=== PATIENT | male | born 1955 ===

== ENCOUNTER 2022-02-19 12:27 | Inpatient (IN) | payer MEDICARE ==
[~2022-02-19] VITALS: Ht 193 cm; Wt 71.0 kg
[~2022-02-19 12:27] MED LIST: CEPH500 PO
[2022-02-19] MEDS ORDERED: Calcium Acetat667 MG PO (12:49)
[2022-02-19] MEDS ORDERED: FURO40 PO (12:49)
[2022-02-19] MEDS ORDERED: FINA5 PO (12:49)
[2022-02-19] MEDS ORDERED: FAMO20 PO (12:50)
[2022-02-19] MEDS ORDERED: METO25 PO (12:50)
[2022-02-19] MEDS ORDERED: OXYC5 PO (12:50)
[2022-02-19] MEDS ORDERED: SERT25 PO (12:51)
[2022-02-19] MEDS ORDERED: BUPR150ER PO (20:23)
[2022-02-19] MEDS ORDERED: MIRTAZAPINE7.5 M1 PO (20:27)
--- NOTE | 2022-02-19 21:43 | NUR ---
PHYSICIAN COMMUNICATION CONTACTED DR WALSH TO NOTIFY HIM THE PATIENT WAS EXPERIENCING 7/10 PAIN. REPORTED THAT THE PATIENT TYPICALLY TAKES 5 MG OXYCODONE AT HOME BID. DR WALSH SAID TO GIVE HIM ONE DOSE NOW AND ONE IN FOUR HOURS IF NEEDED.
--- NOTE | 2022-02-20 05:52 | NUR ---
SHIFT SUMMARY PATIENT ALERT AND ORIENTED X4. MEDICATED TWICE PER EMAR FOR PAIN TO HIS SURGICAL SITE. DRESSING IS INTACT WITH A SMALL AMOUNT OF SANGUENOUS DRAINAGE NOTED. NO ACUTE ISSUES NOTED OVERNIGHT. CALL LIGHT WITHIN REACH. REPORT GIVEN TO ONCOMING RN.
== END 2022-02-20 07:54 | disposition home or self-care (01) | DRG 675 ==
LOC: MHTC 12:27 → MEDS 18:54
PROVIDERS: ADMIT Radiology Diagnostic Radiology
PROC: 0WHG03Z Insertion of Infusion Device into Peritoneal Cavity, Open Approach (ICD-10-PCS; principal; 2022-02-19)
PROC: 3E1M39Z Irrigation of Peritoneal Cavity using Dialysate, Percutaneous Approach (ICD-10-PCS; 2022-02-19)
DX: N18.6 End stage renal disease (principal); J44.9 Chronic obstructive pulmonary disease, unspecified; Z98.890 Other specified postprocedural states; F32.A Depression, unspecified; Z90.49 Acquired absence of other specified parts of digestive tract; F17.210 Nicotine dependence, cigarettes, uncomplicated; Z88.5 Allergy status to narcotic agent; Z79.899 Other long term (current) drug therapy
CPT/HCPCS: 49418; 76937; 99152; 99153; A9270; C1750; C1769; C1887; C1894; J1644; J2250; J3010; J7030; J7040; Q9967

== ENCOUNTER 2023-11-12 11:15 | Day surgery (SDC) | payer MEDICARE ==
[2023-11-12] VITALS (10 sets, daily range): BP systolic 110–155; BP diastolic 64–103
[~2023-11-12] VITALS: Ht 190.5 cm; Wt 75.0 kg
[~2023-11-12 11:15] MED LIST changes: +BUPR150ER PO; +CATAPRES0.1 MG PO; +Calcium Acetat667 MG PO; +FAMO20 PO; +FINA5 PO; +FURO40 PO; +LOSA50 PO; +METO25 PO; +MIRTAZAPINE7.5 M1 PO; +OXYC5 PO; +SERT25 PO
[2023-11-12] MEDS ORDERED: FentaNYL Citrate 50 MCG/ML 2 ML Injection ONE (12:46)
[2023-11-12] MEDS ORDERED: NS 1,000 ML IV ONE (12:46)
[2023-11-12] MEDS ORDERED: Midazolam HCl 1MG / ML 2ML Vial ONE (12:46)
[2023-11-12] MEDS ORDERED: Heparin Sodium 1000 Units/ML 10ML MDV ONE (13:10)
[2023-11-12] MEDS ORDERED: NS 500 ML IV ONE (13:10)
--- NOTE | 2023-11-12 14:07 | NUR ---
pt back to recovery from lab. pt a&o. dressing and steri stips applied to sites. no bleeding noted.
--- NOTE | 2023-11-12 14:45 | NUR ---
PT GIVEN COFFEE AND WATER PER REQUEST.
--- NOTE | 2023-11-12 16:24 | NUR ---
pt given dc instructions and verblaized understanding. iv out. pt changed. sites clean. no signs of bleeding. pts ride en route. pt wanted to wait outside for ride. pt declined wc and ambulated to [facility].
== END 2023-11-12 16:20 | disposition home or self-care (01) ==
LOC: MHTC 11:15
DX: T85.611A Breakdown (mechanical) of intraperitoneal dialysis catheter, initial encounter (principal); N18.6 End stage renal disease; J44.9 Chronic obstructive pulmonary disease, unspecified; F17.210 Nicotine dependence, cigarettes, uncomplicated; Z88.5 Allergy status to narcotic agent; Z79.899 Other long term (current) drug therapy; Y71.8 Miscellaneous cardiovascular devices associated with adverse incidents, not elsewhere classified
CPT/HCPCS: 49418; 49422; 99152; 99153; C1750; C1769; C1894; J1644; J2250; J3010; J7030; J7040; Q9967

== ENCOUNTER → 2024-01-29 | Outpatient (CLI) | payer MEDICARE ==
[2024-01-29 19:51] LABS: BASOPHILS ABSOLUTE AUTO 0.12 K/mm3 (0.00-0.23); BASOPHILS PERCENT AUTO 1 % (0-2); EOSINOPHILS ABSOLUTE AUTO 0.36 K/mm3 (0.00-0.68); EOSINOPHILS PERCENT AUTO 4 % (0-6); Hematocrit 43.5 % (37.0-53.0); Hemoglobin 14.5 g/dL (13.5-17.5); IMMATURE GRAN ABSOLUTE AUTO 0.04 K/mm3 (0.00-0.10); IMMATURE GRAN PERCENT AUTO 0 % (0-1); LYMPHOCYTES ABSOLUTE AUTO 1.51 K/mm3 (0.84-5.20); LYMPHOCYTES PERCENT AUTO 16 % (21-46); MONOCYTES ABSOLUTE AUTO 0.79 K/mm3 (0.16-1.47); MONOCYTES PERCENT AUTO 8 % (4-13); Mean Corpuscular HGB 31.9 pg (26.0-34.0); Mean Corpuscular HGB Conc 33.3 g/dL (31.5-36.5); Mean Corpuscular Volume 96 fL (80-100); Mean Platelet Volume 11.9 fL (9.1-12.4); NEUTROPHILS ABSOLUTE AUTO 6.68 K/mm3 (1.96-9.15); NEUTROPHILS PERCENT AUTO 70 % (41-73); Platelet Count 186 K/mm3 (150-400); RDW Coefficient Variation 13.2 % (11.7-14.2); RDW Standard Deviation 46.7 fL (35.1-46.3); Red Blood Cell Count 4.54 M/mm3 (4.30-5.90)
[2024-01-29 20:16] LABS: Alanine Aminotransfer (ALT/SGP 23 U/L (12-78); Albumin, Blood 3.6 g/dL (3.4-5.0); Alk Phos 85 U/L (50-136); Anion Gap 15 mmol/L (3-11); Aspartate Aminotrans (AST/SGOT 24 U/L (12-37); Bilirubin, Total 0.4 mg/dL (0.1-1.0); Blood Urea Nitrogen 75 mg/dL (8-24); CHOL/HDL RATIO 2.2; CO2, Blood 16 mmol/L (21-32); Calcium, Blood 8.9 mg/dL (8.5-10.1); Chloride, Blood 113 mmol/L (98-108); Cholesterol 142 mg/dL (50-200); Globulin, Blood 3.5 g/dL (2.2-4.0); Glucose, Blood 94 mg/dL (70-99); HDL Cholesterol 66 mg/dL (>39); LDL/HDL RATIO 0.9; Low Density Lipoprotein Chol 59 mg/dL (0-110); Potassium, Blood 4.7 mmol/L (3.5-5.5); Sodium, Blood 139 mmol/L (136-145); Total Protein, Blood 7.1 g/dL (6.4-8.2); Triglycerides 87 mg/dL (30-160); Very Low Density Lipoprot Chol 17 mg/dL (6-32)
[2024-01-29 20:18] LABS: Bun/Creatinine Ratio 10.7 (12.0-20.0); Creatinine, Blood 7.04 mg/dL (0.60-1.20); Glomerular Filtration Rate 8 (60-)
== END ==
LOC: LAB 14:30 → LAB SHORT 14:30
PROVIDERS: Nurse Practitioner Family
DX: Z13.6 Encounter for screening for cardiovascular disorders (principal); N18.5 Chronic kidney disease, stage 5
CPT/HCPCS: 80053; 80061; 85025

== ENCOUNTER 2024-03-04 07:18 | Day surgery (SDC) | payer MEDICARE ==
[~2024-03-04] VITALS: Ht 193 cm; Wt 77.0 kg
[~2024-03-04 07:18] MED LIST changes: +HYDRA25 PO
[2024-03-04 09:07] VITALS: BP 137/78
[2024-03-04] MEDS ORDERED: NS 1,000 ML IV ONE ×2 (09:36→10:06)
[2024-03-04] MEDS ORDERED: Midazolam HCl 1MG / ML 2ML Vial ONE (09:49)
[2024-03-04] MEDS ORDERED: NS 250 ML IV ONE (09:50)
[2024-03-04] MEDS ORDERED: FentaNYL Citrate 50 MCG/ML 2 ML Injection ONE (09:50)
[2024-03-04] MEDS ORDERED: NS 500 ML IV ONE (09:56)
[2024-03-04] MEDS ORDERED: NS 100 ML IV ONE (10:25)
[2024-03-04] MEDS ORDERED: CeFAZolin Sodium 2,000 MG VIAL ONE (10:25)
[2024-03-04 11:27] VITALS: BP 141/86
[2024-03-04 11:30] VITALS: BP 127/85
[2024-03-04 11:45] VITALS: BP 141/98
[2024-03-04 12:00] VITALS: BP 107/90
[2024-03-04 12:30] VITALS: BP 131/77
--- NOTE | 2024-03-04 12:36 | NUR ---
PT VERBALIZES UNDERSTANDING WRITTEN AND VERBAL INSTRUCTIONS. PT DENIES QUESTIONS. PT PD CATH SITE REMAINS C/D/I. NADN. VSS. PT IV DC'D. CATH INTACT. PRESSURE DSG APPLIED. PT DC TO HOME
== END 2024-03-04 12:45 | disposition home or self-care (01) ==
LOC: MHTC 07:18 → BC 07:19 → MHTC 07:19
DX: I12.0 Hypertensive chronic kidney disease with stage 5 chronic kidney disease or end stage renal disease (principal); N18.6 End stage renal disease; T85.611A Breakdown (mechanical) of intraperitoneal dialysis catheter, initial encounter; J44.9 Chronic obstructive pulmonary disease, unspecified; F17.210 Nicotine dependence, cigarettes, uncomplicated; Z88.8 Allergy status to other drugs, medicaments and biological substances; Z79.899 Other long term (current) drug therapy
CPT/HCPCS: 49418; 49422; 99152; 99153; C1750; C1769; C1887; C1894; J0690; J2250; J3010; J7030; J7040; J7050; Q9967

== ENCOUNTER 2024-07-25 09:56 | Emergency (ER) | payer MEDICARE ==
[~2024-07-25] VITALS: Ht 193 cm; Wt 81.7 kg
[2024-07-25] MEDS ORDERED: Dexamethasone Sod Phos 10 MG/ML 1ML VIAL PO ONE (10:15)
[2024-07-25] MEDS ORDERED: Albuterol HFA200 ACT/6.7 GM INH INH ONE (10:20)
[2024-07-25] MEDS ORDERED: BENZ100A PO (10:42)
[2024-07-25] MEDS ORDERED: PRED20 PO (10:42)
[2024-07-25] MEDS ORDERED: ALBU90OI INH (10:42)
[2024-07-25 11:18] VITALS: BP 122/67
== END 2024-07-25 11:34 | disposition home or self-care (01) ==
LOC: ER 09:56
DX: J44.1 Chronic obstructive pulmonary disease with (acute) exacerbation (principal); J06.9 Acute upper respiratory infection, unspecified; F17.200 Nicotine dependence, unspecified, uncomplicated; N18.6 End stage renal disease; I12.0 Hypertensive chronic kidney disease with stage 5 chronic kidney disease or end stage renal disease; Z79.899 Other long term (current) drug therapy; Z88.5 Allergy status to narcotic agent
CPT/HCPCS: 71046; 99283-25; A9270; J1100